=== PATIENT | female | born 1965 | race African-American/Black ===

== ENCOUNTER 2022-09-14 23:26 | Emergency (ER) | payer SELFPAY ==
[~2022-09-14] VITALS: Ht 165.1 cm; Wt 107.0 kg
[2022-09-15 01:48] LABS: BASOPHILS % 0.4 % (0.0-2.0); EOSINOPHILS % 4.2 % (0.0-5.0); HEMATOCRIT. 30.2 % (36.0-48.0); HEMOGLOBIN. 10.4 g/dL (12.0-16.0); LYMPHOCYTES % 35.9 % (20.0-50.0); MEAN CORPUSCULAR HEMOGLOBIN 28.8 pg (28.0-32.0); MEAN CORPUSCULAR VOLUME 83.9 fL (81.0-99.0); MEAN PLATELET VOLUME 8.6 fl (7.4-10.4); MONOCYTES % 10.2 % (2.0-8.0); NEUTROPHILS % 49.3 % (40.0-76.0); PLATELET 272 x1000/uL (130-400)
[2022-09-15 01:57] LABS: CHLORIDE 106 mEq/L (98-107)
[2022-09-15 02:06] LABS: PHOSPHORUS 3.6 mg/dL (2.5-4.9)
[2022-09-15 02:07] LABS: PARTIAL THROMBOPLASTIN TIME 27.3 sec (23.4-31.0); PROTHROMBIN TIME 10.8 sec (9.6-11.0)
[2022-09-15] MEDS ORDERED: POTASSIUM CHLORIDE 20MEQ TABLET SR PO NR (02:45)
[2022-09-15 02:55] VITALS: BP 134/85
[2022-09-15] MEDS ORDERED: POTA-205 MT (02:59)
[2022-09-15 03:21] LABS: CLARITY URINE CLEAR (CLEAR); COLOR URINE YELLOW (YELLOW); KETONES URINE NEGATIVE (NEGATIVE); LEUKOCYTE ESTERASE URINE NEGATIVE (NEGATIVE); NITRITE URINE NEGATIVE (NEGATIVE); OCCULT BLOOD URINE NEGATIVE (NEGATIVE); PH URINE 6.5 (4.5-8.0); PROTEIN URINE NEGATIVE (NEGATIVE); SPECIFIC GRAVITY URINE 1.016 (1.005-1.030)
== END 2022-09-15 02:55 | disposition home or self-care (01) ==
LOC: ER 23:26
DX: R00.2 Palpitations (principal); E87.6 Hypokalemia; I49.3 Ventricular premature depolarization; I10 Essential (primary) hypertension
CPT/HCPCS: 36415; 71045; 80053; 81003; 83735; 83880; 84100; 84484; 85025; 93005; 99285

== ENCOUNTER 2022-09-19 20:24 | Inpatient (IN) | payer SELFPAY ==
[~2022-09-19] VITALS: Ht 162.6 cm; Wt 105.7 kg
[~2022-09-19 20:24] MED LIST: POTA-205 MT
[2022-09-19 21:12] LABS: BASOPHILS % 0.9 % (0.0-2.0); EOSINOPHILS % 4.4 % (0.0-5.0); HEMATOCRIT. 33.6 % (36.0-48.0); HEMOGLOBIN. 11.2 g/dL (12.0-16.0); MEAN CORPUSCULAR HEMOGLOBIN 28.6 pg (28.0-32.0); MEAN PLATELET VOLUME 8.6 fl (7.4-10.4); NEUTROPHILS % 50.7 % (40.0-76.0); PLATELET 285 x1000/uL (130-400); RED BLOOD CELL COUNT 3.91 mill/uL (4.2-5.4); RED CELL DISTRIBUTION WIDTH 12.8 % (11.6-14.6)
[2022-09-19 21:17] LABS: CHLORIDE 105 mEq/L (98-107)
[2022-09-19 21:28] LABS: CLARITY URINE CLEAR (CLEAR); COLOR URINE YELLOW (YELLOW); KETONES URINE NEGATIVE (NEGATIVE); LEUKOCYTE ESTERASE URINE NEGATIVE (NEGATIVE); NITRITE URINE NEGATIVE (NEGATIVE); OCCULT BLOOD URINE NEGATIVE (NEGATIVE); PH URINE 5.5 (4.5-8.0); PROTEIN URINE NEGATIVE (NEGATIVE); SPECIFIC GRAVITY URINE 1.016 (1.005-1.030)
[2022-09-20] MEDS ORDERED: IPRATROPIUM/ALBUTEROL 0.5-3(2.5)MG/3ML NEB HHN PRN (10:00)
[2022-09-20] MEDS ORDERED: ACETAMINOPHEN 325MG TABLET PO PRN ×2 (10:00)
[2022-09-20] MEDS ORDERED: DOCUSATE SODIUM 100MG CAPSULE PO PRN (10:00)
[2022-09-20] MEDS ORDERED: MAGNESIUM/ALUMINUM HYDROXIDE/SIMETHICONE 30ML UDC PO PRN (10:00)
[2022-09-20] MEDS ORDERED: ONDANSETRON HCL 4MG/2ML INJ IV PRN (10:00)
[2022-09-20] MEDS ORDERED: CLONIDINE 0.1MG TABLET PO PRN (10:00)
[2022-09-20] MEDS ORDERED: GUAIFENESIN 200MG/10ML SUGAR FREE UDC PO PRN (10:00)
[2022-09-20] MEDS ORDERED: NITROGLYCERIN 0.4MG TABLET SL SL PRN (10:00)
[2022-09-20] MEDS ORDERED: ENOXAPARIN 40MG/0.4ML SYR SUBCUT SCH (10:00)
[2022-09-20 11:00] VITALS: BP 157/83
[2022-09-20] MEDS: ENOXAPARIN 30MG/0.3ML SYR SUBCUT SCH ×2 (11:16→21:21)
[2022-09-20] MEDS: ASPIRIN 81MG EC TABLET PO SCH (11:16)
[2022-09-20 12:00] VITALS: BP 121/52
[2022-09-20 13:52] LABS: T4 FREE 1.1 ng/dL (0.76-1.46)
[2022-09-20 14:49] LABS: *AMPHETAMINES SCREEN URINE NEGATIVE (NEGATIVE); *BARBITURATES SCREEN URINE NEGATIVE (NEGATIVE); *BENZODIAZEPINES SCREEN URINE NEGATIVE (NEGATIVE); *COCAINE SCREEN URINE NEGATIVE (NEGATIVE); CANNABINOID URINE SCREEN NEGATIVE (NEGATIVE); METHADONE URINE SCREEN NEGATIVE (NEGATIVE); OPIATES URINE SCREEN NEGATIVE (NEGATIVE); PHENCYCLIDINE URINE SCREEN NEGATIVE (NEGATIVE)
[2022-09-20 15:44] LABS: CREATINE KINASE 110 IU/L (26-192); CREATINE KINASE MB FRACTION < 1.0 ng/mL (0.5-3.6)
[2022-09-20 16:00] VITALS: BP 134/68
[2022-09-20] MEDS ORDERED: COR6 MT (19:12)
[2022-09-20] MEDS ORDERED: ENAL1TAB14 MT (19:12)
[2022-09-20 20:00] VITALS: BP 135/92
[2022-09-20] MEDS: FAMOTIDINE 20MG TABLET PO SCH (20:29)
[2022-09-21] VITALS: BP 120/80
[2022-09-21 00:53] LABS: CREATINE KINASE MB FRACTION 1.1 ng/mL (0.5-3.6)
[2022-09-21 04:00] VITALS: BP 153/88
[2022-09-21 06:25] LABS: BASOPHILS % 0.9 % (0.0-2.0); HEMOGLOBIN. 10.9 g/dL (12.0-16.0); LYMPHOCYTES % 43.2 % (20.0-50.0); MEAN CORPUSCULAR HEMOGLOBIN 28.8 pg (28.0-32.0); MEAN CORPUSCULAR VOLUME 84.6 fL (81.0-99.0); MEAN PLATELET VOLUME 9.5 fl (7.4-10.4); MONOCYTES % 10.6 % (2.0-8.0); NEUTROPHILS % 40.3 % (40.0-76.0); PLATELET 263 x1000/uL (130-400); RED BLOOD CELL COUNT 3.78 mill/uL (4.2-5.4); RED CELL DISTRIBUTION WIDTH 13.2 % (11.6-14.6)
[2022-09-21 06:44] LABS: CHLORIDE 106 mEq/L (98-107)
[2022-09-21 08:00] VITALS: BP 137/82
[2022-09-21] MEDS: ASPIRIN 81MG EC TABLET PO SCH (09:19)
[2022-09-21] MEDS: ENOXAPARIN 30MG/0.3ML SYR SUBCUT SCH ×2 (09:20→21:19)
[2022-09-21 11:46] VITALS: BP 149/89
[2022-09-21] MEDS: METOPROLOL TARTRATE 25MG TABLET PO SCH ×2 (11:49→21:19)
[2022-09-21 15:45] VITALS: BP 141/76
[2022-09-21 20:00] VITALS: BP 140/75
[2022-09-21] MEDS ORDERED: ATORVASTATIN CALCIUM 10MG TABLET PO SCH (21:00)
[2022-09-21] MEDS: FAMOTIDINE 20MG TABLET PO SCH (21:18)
[2022-09-22] VITALS: BP 115/75
[2022-09-22 04:00] VITALS: BP 133/71
[2022-09-22 06:52] LABS: BASOPHILS % 1.2 % (0.0-2.0); EOSINOPHILS % 6.1 % (0.0-5.0); HEMATOCRIT. 33.1 % (36.0-48.0); HEMOGLOBIN. 11.5 g/dL (12.0-16.0); LYMPHOCYTES % 45.9 % (20.0-50.0); MEAN CORPUSCULAR HEMOGLOBIN 29.4 pg (28.0-32.0); MEAN CORPUSCULAR VOLUME 84.9 fL (81.0-99.0); MONOCYTES % 8.6 % (2.0-8.0); NEUTROPHILS % 38.2 % (40.0-76.0); PLATELET 258 x1000/uL (130-400); RED CELL DISTRIBUTION WIDTH 13.2 % (11.6-14.6)
[2022-09-22 07:00] LABS: CHLORIDE 107 mEq/L (98-107)
[2022-09-22 08:00] VITALS: BP 116/67
[2022-09-22] MEDS ORDERED: DILT120T13 PO (08:04)
[2022-09-22] MEDS ORDERED: ASPI-1406 PO (08:04)
[2022-09-22] MEDS ORDERED: ATOR10TA PO (08:04)
[2022-09-22] MEDS: ASPIRIN 81MG EC TABLET PO SCH (08:58)
[2022-09-22] MEDS: METOPROLOL TARTRATE 25MG TABLET PO SCH (08:59)
[2022-09-22 09:29] VITALS: BP 116/67
[2022-09-22 12:18] VITALS: BP 122/69
== END 2022-09-22 13:20 | disposition home or self-care (01) | DRG 201 ==
LOC: ER 20:24 → 7WST 09-20 06:51
PROVIDERS: ADMIT Internal Medicine; ATTEND Internal Medicine
DX: I48.91 Unspecified atrial fibrillation (principal); I24.9 Acute ischemic heart disease, unspecified; I50.32 Chronic diastolic (congestive) heart failure; D50.9 Iron deficiency anemia, unspecified; D53.9 Nutritional anemia, unspecified; E11.9 Type 2 diabetes mellitus without complications; I11.0 Hypertensive heart disease with heart failure; E66.01 Morbid (severe) obesity due to excess calories; E87.6 Hypokalemia; I35.0 Nonrheumatic aortic (valve) stenosis; I49.3 Ventricular premature depolarization; E78.5 Hyperlipidemia, unspecified; Z68.41 Body mass index [BMI] 40.0-44.9, adult; Z90.710 Acquired absence of both cervix and uterus; Z79.4 Long term (current) use of insulin
CPT/HCPCS: 36415; 71045; 80048; 80053; 80061; 80305; 81003; 82550; 82553; 82962; 83036; 83735; 84439; 84443; 84484; 85025; 85379; 93005; 93306; 93970; 97161; 99285; J1650

== ENCOUNTER 2022-11-30 21:26 | Inpatient (IN) | payer BC ==
[~2022-11-30] VITALS: Ht 165.1 cm; Wt 106.6 kg
[~2022-11-30 21:26] MED LIST changes: +ASPI-1406 PO; +ATOR10TA PO; +DILT120T13 PO; +ENAL1TAB14 MT; -POTA-205 MT
[2022-12-01] LABS: BASOPHILS % 1.1 % (0.0-2.0); EOSINOPHILS % 3.8 % (0.0-5.0); HEMATOCRIT. 33.7 % (36.0-48.0); HEMOGLOBIN. 11.3 g/dL (12.0-16.0); MEAN CORPUSCULAR HGB CONC 33.4 g/dL (31.0-37.0); MEAN CORPUSCULAR VOLUME 83.8 fL (81.0-99.0); MEAN PLATELET VOLUME 8.9 fl (7.4-10.4); MONOCYTES % 9.5 % (2.0-8.0); NEUTROPHILS % 52.6 % (40.0-76.0); PLATELET 271 x1000/uL (130-400); RED BLOOD CELL COUNT 4.02 mill/uL (4.2-5.4)
[2022-12-01 00:03] LABS: CHLORIDE 102 mEq/L (98-107); INDEX HEMOLYSI 1 (1-3); INDEX ICTERIC 1 (1-4); INDEX LIPEMIC 1 (1-3); POTASSIUM 3.1 mEq/L (3.5-5.1); SODIUM 137 mEq/L (136-145)
[2022-12-01 00:12] LABS: ALANINE AMINOTRANSFERASE 39 IU/L (13-61); ALBUMIN 3.6 g/dL (3.4-5.0); ASPARTATE AMINOTRANSFERASE 21 IU/L (15-37); BILIRUBIN TOTAL 0.6 mg/dL (0.1-1.0); CALCIUM 8.9 mg/dL (8.5-10.1); CARBON DIOXIDE 28 mEq/L (21-32); CREATININE 0.8 mg/dL (0.6-1.3); GLUCOSE 142 mg/dL (70-105); NT PRO B-TYPE NATRIURETIC PEP 158 pg/mL (5-125); PROTEIN TOTAL 7.8 g/dL (6.0-8.3); TROPONIN I HIGH SENSITIVITY 8 ng/L (<54); UREA NITROGEN BLOOD 15 mg/dL (7-21)
[2022-12-01 00:17] LABS: T4 FREE 1.18 ng/dL (0.76-1.46); THYROID STIMULATING HORMONE 1.7 uIU/mL (0.36-3.74)
[2022-12-01] MEDS ORDERED: ONDANSETRON HCL 4MG/2ML INJ IV NR (00:30)
[2022-12-01] MEDS ORDERED: POTASSIUM CHLORIDE 20MEQ/PACKET PO NR (00:30)
[2022-12-01] MEDS ORDERED: FAMOTIDINE 20MG/2ML VIAL IV NR (00:30)
[2022-12-01] MEDS ORDERED: SODIUM CHLORIDE 0.9% 500 ML IV NR (00:30)
[2022-12-01] MEDS ORDERED: CLONIDINE 0.1MG TABLET PO PRN (02:30)
[2022-12-01] MEDS ORDERED: ACETAMINOPHEN 325MG TABLET PO PRN ×2 (02:30)
[2022-12-01] MEDS ORDERED: IPRATROPIUM/ALBUTEROL 0.5-3(2.5)MG/3ML NEB HHN PRN (02:30)
[2022-12-01 08:00] VITALS: BP 119/72; PULSE 62; RESP 18; TEMP 97.7
[2022-12-01 08:06] VITALS: BP 119/72; PULSE 62; RESP 18; TEMP 97.7
[2022-12-01] MEDS ORDERED: CARVEDILOL 6.25 MG TABLET PO SCH (09:00)
[2022-12-01] MEDS ORDERED: HYDROCHLOROTHIAZIDE 12.5MG CAPSULE PO SCH (09:00)
[2022-12-01] MEDS: CARVEDILOL 3.125 MG TABLET PO SCH ×2 (09:43→17:01)
[2022-12-01] MEDS: ENOXAPARIN 30MG/0.3ML SYR SUBCUT SCH ×2 (09:45→21:00)
[2022-12-01] MEDS: ENALAPRIL 5MG TABLET PO SCH (09:45)
[2022-12-01 12:00] VITALS: BP 118/75; PULSE 65; RESP 18; TEMP 97.9
[2022-12-01 15:32] LABS: CALCIUM 9.1 mg/dL (8.5-10.1); CHLORIDE 103 mEq/L (98-107); INDEX HEMOLYSI 1 (1-3); INDEX ICTERIC 1 (1-4); INDEX LIPEMIC 1 (1-3); POTASSIUM 3.4 mEq/L (3.5-5.1); SODIUM 135 mEq/L (136-145)
[2022-12-01 15:35] LABS: CARBON DIOXIDE 28 mEq/L (21-32); CREATININE 0.8 mg/dL (0.6-1.3); GLUCOSE 110 mg/dL (70-105); UREA NITROGEN BLOOD 13 mg/dL (7-21)
[2022-12-01 16:00] VITALS: BP 150/82; PULSE 73; RESP 20; TEMP 97.7
[2022-12-01 18:09] LABS: CREATINE KINASE MB FRACTION 1.4 ng/mL (0.5-3.6)
[2022-12-01 20:00] VITALS: BP 131/72; PULSE 73; RESP 18; TEMP 97.9
[2022-12-02] VITALS: BP 127/77; PULSE 71; RESP 18; TEMP 97.9
[2022-12-02 01:07] LABS: CREATINE KINASE MB FRACTION 1.5 ng/mL (0.5-3.6)
[2022-12-02 04:00] VITALS: BP 126/89; PULSE 74; RESP 18; TEMP 97.9
[2022-12-02 06:25] LABS: BASOPHILS % 0.9 % (0.0-2.0); EOSINOPHILS % 4.4 % (0.0-5.0); HEMATOCRIT. 33.1 % (36.0-48.0); HEMOGLOBIN. 11.2 g/dL (12.0-16.0); LYMPHOCYTES % 43.1 % (20.0-50.0); MEAN CORPUSCULAR HEMOGLOBIN 28.5 pg (28.0-32.0); MEAN CORPUSCULAR HGB CONC 33.9 g/dL (31.0-37.0); MONOCYTES % 11.2 % (2.0-8.0); NEUTROPHILS % 40.4 % (40.0-76.0); PLATELET 252 x1000/uL (130-400); RED BLOOD CELL COUNT 3.94 mill/uL (4.2-5.4); RED CELL DISTRIBUTION WIDTH 12.8 % (11.6-14.6); WHITE BLOOD COUNT 6.2 x1000/uL (4.5-11.0)
[2022-12-02 06:44] LABS: CHLORIDE 103 mEq/L (98-107); INDEX HEMOLYSI 1 (1-3); INDEX ICTERIC 1 (1-4); INDEX LIPEMIC 1 (1-3); POTASSIUM 3.4 mEq/L (3.5-5.1); SODIUM 138 mEq/L (136-145)
[2022-12-02 06:56] LABS: ALANINE AMINOTRANSFERASE 31 IU/L (13-61); ALBUMIN 3.3 g/dL (3.4-5.0); ASPARTATE AMINOTRANSFERASE 18 IU/L (15-37)
[2022-12-02 08:00] VITALS: BP 133/53; PULSE 78; RESP 18; TEMP 97.7
[2022-12-02] MEDS: ENOXAPARIN 30MG/0.3ML SYR SUBCUT SCH (08:56)
[2022-12-02] MEDS: ENALAPRIL 5MG TABLET PO SCH (08:56)
[2022-12-02] MEDS: CARVEDILOL 3.125 MG TABLET PO SCH (08:56)
[2022-12-02 09:22] LABS: BILIRUBIN TOTAL 0.6 mg/dL (0.1-1.0); CALCIUM 9.1 mg/dL (8.5-10.1); CARBON DIOXIDE 28 mEq/L (21-32); CREATINE KINASE 173 IU/L (26-192); CREATINE KINASE MB FRACTION 1.2 ng/mL (0.5-3.6); CREATININE 0.8 mg/dL (0.6-1.3); GLUCOSE 104 mg/dL (70-105); PHOSPHORUS 4.3 mg/dL (2.5-4.9); PROTEIN TOTAL 7.4 g/dL (6.0-8.3); T4 FREE 1.17 ng/dL (0.76-1.46); UREA NITROGEN BLOOD 17 mg/dL (7-21)
[2022-12-02 10:09] VITALS: BP 133/53; PULSE 78; TEMP 97.7; O2SAT 99
== END 2022-12-02 10:30 | disposition home or self-care (01) | DRG 641 ==
LOC: ER 21:26 → MICUSO 12-01 01:25 → EDBEDREQTM 12-01 02:03 → EDBEDREQ 12-01 02:03 → 7WST 12-01 09:14
PROVIDERS: ADMIT Internal Medicine; ATTEND Internal Medicine
DX: E87.6 Hypokalemia (principal); I50.32 Chronic diastolic (congestive) heart failure; I49.9 Cardiac arrhythmia, unspecified; I11.0 Hypertensive heart disease with heart failure; E03.9 Hypothyroidism, unspecified; I48.91 Unspecified atrial fibrillation; Z90.710 Acquired absence of both cervix and uterus; Z79.899 Other long term (current) drug therapy; Z91.040 Latex allergy status
CPT/HCPCS: 36415; 71045; 80048; 80053; 80061; 82550; 82553; 83036; 83735; 83880; 84100; 84439; 84443; 84484; 85025; 93005; 93306; 99285; J1650; J2405; J3490